=== PATIENT | female | born 1950 | race Two or more races ===

== ENCOUNTER 2024-04-19 00:02 | Emergency (ER) | payer OTHER ==
[~2024-04-19] VITALS: Ht 154.9 cm; Wt 50.8 kg
[2024-04-19] MEDS ORDERED: ELIQUIS2.5 MG (00:20)
[2024-04-19] MEDS ORDERED: JARDIANCE10 MG (00:20)
[2024-04-19] MEDS ORDERED: TOPROL XL25 M1 (00:21)
[2024-04-19] MEDS ORDERED: METOCLOPRAMIDE HCL 5 MG/ML VIAL IM STA (01:53)
[2024-04-19] MEDS ORDERED: FAMOtidine 10 MG/ML (4ML VIAL) IV PUSH STA (01:54)
[2024-04-19] MEDS ORDERED: ONDANSETRON HCL 2 MG/ML VIAL IV STA (01:54)
[2024-04-19] MEDS ORDERED: ONDANSETRON HCL 2 MG/ML VIAL ONE (01:57)
[2024-04-19] MEDS ORDERED: FAMOTIDINE/PF 20 MG/2 ML VIAL ONE (01:58)
[2024-04-19] MEDS ORDERED: METOCLOPRAMIDE HCL 5 MG/ML VIAL ONE (01:58)
[2024-04-19] MEDS ORDERED: HYOSCYAMINE SULFATE 0.125 MG TAB.SUBL ONE (01:58)
[2024-04-19] MEDS ORDERED: HYOSCYAMINE SULFATE 0.125 MG TAB.SUBL SL ONE (02:00)
[2024-04-19] MEDS ORDERED: 0.9 % SODIUM CHLORIDE 1,000 ML IV STA (02:03)
[2024-04-19 02:20] LABS: HEMOGLOBIN 14.8 g/dL (12.0-15.00); MEAN CELL VOLUME 93.2 fL (80.00-100.00); MEAN CORPUSCULAR HGB CONC 34.3 g/dl (32.0-36.0); PLATELET COUNT 211 K/uL (150-450); RED BLOOD COUNT 4.61 M/uL (4.00-6.00); RED CELL DISTRIBUTION WIDTH 13.9 % (11.5-14.5)
[2024-04-19 02:40] LABS: CALCIUM 10.4 mg/dL (8.5-10.1); CREATININE SERUM 0.92 mg/dL (0.55-1.02); GFR 60.01; POTASSIUM 4.28 mEq/L (3.5-5.1)
== END 2024-04-19 04:03 | disposition home or self-care (01) ==
LOC: ER 00:04
DX: R11.10 Vomiting, unspecified (principal); E11.43 Type 2 diabetes mellitus with diabetic autonomic (poly)neuropathy; K31.84 Gastroparesis
CPT/HCPCS: 36415; 74022; 96365; 96366; 96372; 99283; J2405; J2765; J3490; J7030